=== PATIENT | male | born 1985 | race African-American/Black ===

== ENCOUNTER 2017-12-30 05:01 | Outpatient (CLI) | payer OTHER | END 2017-12-30 05:02 | disposition critical access hospital (66) | LOC: EMS 05:01 | PROVIDERS: ATTEND Surgery | DX: R55 Syncope and collapse (principal) | CPT/HCPCS: A0425; A0429 ==

== ENCOUNTER 2017-12-30 05:17 | Emergency (ER) | payer OTHER ==
--- NOTE | 2017-12-30 05:29 | ED Physician Documentation ---
PD HPI SYNCOPE - Stated complaint Stated Complaint: SYNCOPE - Chief complaint Chief Complaint: Neuro - History obtained from History obtained from: Patient, EMS - History of Present Illness Witnessed: Witnessed Timing - onset: Today Duration: Minutes (5) Preceding symptoms: Diaphoresis Injury occurred: Fell. No: Head injury, Bit tongue Similar symptoms before: Has not had sx before Recently seen: Not recently seen - Additional information Additional information: Patient is a 32 year old male with no significant past medical history who is presenting to the emergency department for a syncopal episode. According to patient and ems patient had just gone to the bathroom. Patient was walking back to bed when he became diaphoretic and syncopized. Patient's witnessed the event and stated that the patient hit his head on the door on his way down. She reports that he was out for a few minutes. Upon initial evaluation in the emergency department patient was awake, alert oriented and denied any complaints. Review of Systems Constitutional: denies: Fever, Chills Eyes: denies: Decreased vision Ears: denies: Ear pain, Drainage/discharge Nose: denies: Epistaxis Cardiac: denies: Chest pain / pressure, Palpitations Respiratory: denies: Cough, Wheezing GI: denies: Abdominal Pain, Nausea, Vomiting : reports: Reviewed and negative Skin: denies: Abrasion (s), Laceration (s) Musculoskeletal: denies: Neck pain Neurologic: reports: Syncope. denies: Headache, Head injury Immunocompromised: denies: Immunocompromised PD PAST MEDICAL HISTORY - Past Medical History Past Medical History: No - Past Surgical History Past Surgical History: Yes - Present Medications Home Medications: Ambulatory Orders Medication Instructions Recorded Confirmed Ondansetron Odt [Zofran] 4 mg TL Q6H PRN #14 tablet 12/30/17 - Allergies Allergies/Adverse Reactions: Allergies Allergy/AdvReac Type Severity Reaction Status Date / Time No Known Drug Allergies Allergy Verified 12/30/17 05:21 - Social History Does the pt smoke?: No Smoking Status: Never smoker Does the pt drink ETOH?: No Does the pt have substance abuse?: No - Immunizations Immunizations are current?: Yes PD ED PE NORMAL - Vitals Vital signs reviewed: Yes - General General: Alert and oriented X 3, No acute distress - HEENT HEENT: Atraumatic, PERRL, Moist mucous membranes - Neck Neck: Supple, no meningeal sign, No JVD - Cardiac Cardiac: RRR, No murmur - Respiratory Respiratory: No respiratory distress - Abdomen Abdomen: Soft, Non tender, Non distended - Derm Derm: Normal color, No rash - Extremities Extremities: No deformity, No edema, No calf tenderness / cord - Neuro Neuro: Alert and oriented X 3, supervisor records change 2-12 intact, No motor deficit, Normal speech Eye Opening: Spontaneous Motor: Obeys Commands Verbal: Oriented GCS Score: 15 Results - Vitals Vitals: Vital Signs - 24 hr 12/30/17 12/30/17 12/30/17 05:17 06:00 06:02 Temperature 37.3 C 38.2 C H Heart Rate 83 77 Respiratory 18 16 Rate Blood Pressure 121/75 112/88 H O2 Saturation 100 95 Oxygen O2 Source Room air - EKG (time done) 0521 Rate: Rate (enter#) (77) Rhythm: NSR [place]: Normal Intervals: Normal [place] Ischemia: ST elevation c/w repol Compare to prior EKG: Old EKG unavailable - Labs Labs: Laboratory Tests 12/30/17 12/30/17 12/30/17 05:40 05:40 05:40 WBC 5.7 RBC 6.00 Hgb 13.1 L Hct 42.0 MCV 69.9 L MCH 21.8 L MCHC 31.2 L RDW 13.7 Plt Count 213 MPV 8.2 Neut # 4.3 Lymph # 0.8 L Garfield # 0.5 Eos # 0.0 Baso # 0.0 Absolute Nucleated RBC 0.00 Nucleated RBC % 0.0 Sodium 135 Potassium 3.8 Chloride 102 Carbon Dioxide 27 Anion Gap 6.0 BUN 17 Creatinine 1.3 H Estimated GFR (MDRD) 78 L Glucose 117 H Calcium 8.6 Total Bilirubin 0.6 AST 21 ALT 18 Alkaline Phosphatase 71 Troponin I < 0.04 B-Natriuretic Peptide Total Protein 7.6 Albumin 4.0 Globulin 3.6 Albumin/Globulin Ratio 1.1 Lipase 15 L 12/30/17 05:40 WBC RBC Hgb Hct MCV MCH MCHC RDW Plt Count MPV Neut # Lymph # Garfield # Eos # Baso # Absolute Nucleated RBC Nucleated RBC % Sodium Potassium Chloride Carbon Dioxide Anion Gap BUN Creatinine Estimated GFR (MDRD) Glucose Calcium Total Bilirubin AST ALT Alkaline Phosphatase Troponin I B-Natriuretic Peptide 13 Total Protein Albumin Globulin Albumin/Globulin Ratio Lipase PD MEDICAL DECISION MAKING - ED course Complexity details: reviewed old records, reviewed results, re-evaluated patient , considered differential, d/w patient, d/w family ED course: Patient was seen and examined at bedside. ekg was performed and was normal sinus. labs were drawn and showed a small bump in creatinine. patient also became febrile while in the emergency department and was treated with ibuprofen. A line was started and a fluid bolus was started but patient did not like the way it felt so he asked for it to be removed. patient was given a liter of fluids PO which he tolerated without difficulty. Patient was negative on the granados trevor syncope rules. patient required no further work up and was stable for discharge with outpatient follow up. Departure - Departure Disposition: 01 Home, Self Care Clinical Impression: Syncope Condition: Good Instructions: ED Fainting Unkn Cause, ED Syncope Vasovagal Follow-Up: IRAM TURNER [Primary Care Provider] - Prescriptions: Ondansetron Odt [Zofran] 4 mg TL Q6H PRN #14 tablet PRN Reason: Nausea / Vomiting Comments: Your diagnostics today were within normal limits aside from very mild dehydration. You did develop a fever while you were here so this might be the start of a developing infection. Over the next few days you should be drinking at least 100oz of water or electrolyte solution. You should take motrin or tylenol as needed for fevers. You should follow up with your doctor if your symptoms return. You may return to the emergency department at any time for new , worsening or uncontrollable symptoms.
[2017-12-30 05:51] LABS: BASOPHILS % (AUTO) 0.7 %; EOSINOPHILS % (AUTO) 0.6 %; HGB - HEMOGLOBIN 13.1 g/dL (14.0-18.0); LYMPHOCYTES # (AUTO) 0.8 10^3/uL (1.5-3.5); LYMPHOCYTES % (AUTO) 14.9 %; MEAN CORPUSCULAR HEMOGLOBIN 21.8 pg (27.0-31.0); MEAN CORPUSCULAR HGB CONC 31.2 g/dL (32.0-36.0); MEAN CORPUSCULAR VOLUME 69.9 fL (80.0-94.0); MEAN PLATELET VOLUME 8.2 fL (7.4-11.4); MONOCYTES # (AUTO) 0.5 10^3/uL (0.0-1.0); MONOCYTES % (AUTO) 8.7 %; NEUTROPHILS # (AUTO) 4.3 10^3/uL (1.5-6.6); NEUTROPHILS % (AUTO) 75.1 %; PLT - PLATELET COUNT 213 10^3/uL (130-450); RED CELL DISTRIBUTION WIDTH 13.7 % (12.0-15.0); WHITE BLOOD COUNT 5.7 x10^3/uL (4.8-10.8)
[2017-12-30 06:02] LABS: ALBUMIN/GLOBULIN RATIO 1.1 (1.0-2.2); BILIRUBIN,TOTAL 0.6 mg/dL (0.2-1.0); CALCIUM 8.6 mg/dL (8.5-10.3); CREATININE 1.3 mg/dL (0.6-1.2); TOTAL PROTEIN 7.6 g/dL (6.7-8.2)
[2017-12-30] MEDS ORDERED: IBUPROFEN 600 MG TABLET PO STA (06:05)
[2017-12-30] MEDS ORDERED: SODIUM CHLORIDE 0.9% 1,000 ML IV ONE (06:11)
[2017-12-30 06:19] VITALS: BP 112/88
== END 2017-12-30 06:28 | disposition home or self-care (01) ==
LOC: EDUNIT# → ED 05:17
DX: R55 Syncope and collapse (principal); E86.0 Dehydration; R50.9 Fever, unspecified
CPT/HCPCS: 36415; 80053; 83690; 83880; 84484; 85025; 93005; 99283

== ENCOUNTER 2017-12-30 10:25 | Outpatient (CLI) | payer OTHER | END 2017-12-30 10:26 | disposition critical access hospital (66) | LOC: EMS 10:25 | PROVIDERS: ATTEND Surgery | DX: R55 Syncope and collapse (principal) | CPT/HCPCS: A0425; A0429 ==

== ENCOUNTER 2017-12-30 10:54 | Observation (INO) | payer OTHER ==
--- NOTE | 2017-12-30 11:11 | ED Physician Documentation ---
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 denies: Chills Ears: denies: Drainage/discharge Nose: denies: Epistaxis Cardiac: denies: Chest pain / pressure, Palpitations Respiratory: denies: Dyspnea, Cough Musculoskeletal: denies: Neck pain Neurologic: reports: Syncope, Head injury. denies: Generalized weakness, Headache Endocrine: denies: Easy bruising / bleeding Immunocompromised: denies: Immunocompromised PD PAST MEDICAL HISTORY - Past Surgical History Past Surgical History: Yes - Present Medications Home Medications: Ambulatory Orders Medication Instructions Recorded Confirmed Terbinafine [Lamisil] 250 mg PO DAILY 12/30/17 12/30/17 - Allergies Allergies/Adverse Reactions: Allergies Allergy/AdvReac Type Severity Reaction Status Date / Time No Known Drug Allergies Allergy Verified 12/30/17 11:03 - Social History Does the pt smoke?: No Smoking Status: Never smoker Does the pt drink ETOH?: No Does the pt have substance abuse?: No - Immunizations Immunizations are current?: Yes PD ED PE NORMAL - Vitals Vital signs reviewed: Yes - HEENT HEENT: Atraumatic, PERRL, EOMI - Neck Neck: No bony TTP - Cardiac Cardiac: RRR, No murmur - Respiratory Respiratory: No respiratory distress, Clear bilaterally - Abdomen Abdomen: Soft, Non tender - Back Back: No spinal TTP - Derm Derm: Normal color - Neuro Neuro: Alert and oriented X 3, route driver 2-12 intact, No motor deficit, No sensory deficit Eye Opening: Spontaneous Motor: Obeys Commands Verbal: Oriented GCS Score: 15 Results - Vitals Vitals: Vital Signs - 24 hr 12/30/17 12/30/17 12/30/17 10:54 11:11 12:32 Temperature 36.3 C L Heart Rate 55 L 50 L Respiratory 23 15 Rate Blood Pressure 119/70 112/66 Blood Pressure 119/79 [Left] Blood Pressure 105/64 [Right] O2 Saturation 100 100 Oxygen O2 Source Room air - EKG (time done) 1055 Rate: Rate (enter#) (51) Rhythm: NSR [place]: Normal Intervals: Normal [place] Ischemia: Normal ST segments Other comments: Other comments (no delta wave) - Tele (time rhythm occurred) 1225 Telemetry / rhythm strip: NSR - Labs Labs: Laboratory Tests 12/30/17 12/30/17 12/30/17 12:40 12:42 12:42 WBC 4.9 RBC 5.89 Hgb 13.2 L Hct 41.2 L MCV 69.9 L MCH 22.4 L MCHC 32.0 RDW 14.1 Plt Count 200 MPV 8.6 Neut # 3.7 Lymph # 0.6 L Harris # 0.6 Eos # 0.0 Baso # 0.0 Absolute Nucleated RBC 0.00 Nucleated RBC % 0.1 D-Dimer < 200.0 L Sodium 133 L Potassium 3.8 Chloride 100 L Carbon Dioxide 26 Anion Gap 7.0 BUN 14 Creatinine 1.3 H Estimated GFR (MDRD) 78 L Glucose 102 H Calcium 8.9 Troponin I TSH Free T4 Urine Opiates Screen Ur Oxycodone Screen Urine Methadone Screen Ur Propoxyphene Screen Ur Barbiturates Screen Ur Tricyclics Screen Ur Phencyclidine Scrn Ur Amphetamine Screen U Methamphetamines Scrn U Benzodiazepines Scrn Urine Cocaine Screen U Cannabinoids Screen 12/30/17 12/30/17 12/30/17 12:42 12:42 12:45 WBC RBC Hgb Hct MCV MCH MCHC RDW Plt Count MPV Neut # Lymph # Harris # Eos # Baso # Absolute Nucleated RBC Nucleated RBC % D-Dimer Sodium Potassium Chloride Carbon Dioxide Anion Gap BUN Creatinine Estimated GFR (MDRD) Glucose Calcium Troponin I < 0.04 TSH 1.09 Free T4 0.98 Urine Opiates Screen NEGATIVE Ur Oxycodone Screen NEGATIVE Urine Methadone Screen NEGATIVE Ur Propoxyphene Screen NEGATIVE Ur Barbiturates Screen NEGATIVE Ur Tricyclics Screen NEGATIVE Ur Phencyclidine Scrn NEGATIVE Ur Amphetamine Screen NEGATIVE U Methamphetamines Scrn NEGATIVE U Benzodiazepines Scrn NEGATIVE Urine Cocaine Screen NEGATIVE U Cannabinoids Screen NEGATIVE - Rads (name of study) CTH Radiology: See rad report (neg) echo Radiology: See rad report (sinus edy EF 65-70% no regional wall motion abn, no effuson, nl valves) PD MEDICAL DECISION MAKING - ED course ED course: pt with recurrent unprovoked syncope EKG and first hr tele in ER sinus edy after second episode, feel pt merits observation status for prolonged monitoring echo etc already had labs earlier today but ordered rpt for purpose of admission spoke to hospitalist at 1250 and she req CTH and tox screen as well Departure - Departure Disposition: ED Place in Observation Clinical Impression: Syncope Qualifiers: Syncope type: unspecified Qualified Code(s): R55 - Syncope and collapse Condition: Good Discharge Date/Time: 12/30/17 14:36
[2017-12-30 12:53] LABS: MUDS CUTOFF CONCENTRATIONS CUTOFF CONC BELOW:
[2017-12-30 13:00] LABS: BASOPHILS % (AUTO) 0.3 %; CALCIUM 8.9 mg/dL (8.5-10.3); CREATININE 1.3 mg/dL (0.6-1.2); EOSINOPHILS % (AUTO) 0.2 %; HGB - HEMOGLOBIN 13.2 g/dL (14.0-18.0); LYMPHOCYTES # (AUTO) 0.6 10^3/uL (1.5-3.5); MEAN CORPUSCULAR HEMOGLOBIN 22.4 pg (27.0-31.0); MEAN CORPUSCULAR VOLUME 69.9 fL (80.0-94.0); MEAN PLATELET VOLUME 8.6 fL (7.4-11.4); MONOCYTES # (AUTO) 0.6 10^3/uL (0.0-1.0); MONOCYTES % (AUTO) 12.9 %; NEUTROPHILS # (AUTO) 3.7 10^3/uL (1.5-6.6); NEUTROPHILS % (AUTO) 74.6 %; PLT - PLATELET COUNT 200 10^3/uL (130-450); RED BLOOD COUNT 5.89 10^6/uL (4.70-6.10); RED CELL DISTRIBUTION WIDTH 14.1 % (12.0-15.0); WHITE BLOOD COUNT 4.9 x10^3/uL (4.8-10.8)
[2017-12-30 13:06] LABS: AMPHETAMINE SCREEN,URINE NEGATIVE (NEGATIVE); BENZODIAZEPINES SCREEN, URINE NEGATIVE (NEGATIVE); COCAINE SCREEN URINE NEGATIVE (NEGATIVE); METHADONE SCREEN, URINE NEGATIVE (NEGATIVE); METHAMPHETAMINES SCREEN, URINE NEGATIVE (NEGATIVE); OPIATE SCREEN, URINE NEGATIVE (NEGATIVE); OXYCODONE SCREEN, URINE NEGATIVE (NEGATIVE); PROPOXYPHENE SCREEN, URINE NEGATIVE (NEGATIVE); TRICYCLIC ANTIDEPRESSANT,URINE NEGATIVE (NEGATIVE)
[2017-12-30] MEDS ORDERED: ACETAMINOPHEN 325 MG TABLET PO PRN (13:35)
[2017-12-30] MEDS ORDERED: SODIUM CHLORIDE FLUSH 0.9% 10 ML SYRINGE IVP PRN (13:35)
[2017-12-30] MEDS ORDERED: ONDANSETRON 4 MG/2 ML VIAL IVP PRN (13:35)
--- NOTE | 2017-12-30 13:41 | CT Report ---
EXAM: CT HEAD EXAM DATE: 12/30/2017 01:24 PM. CLINICAL HISTORY: Syncope fall HI. COMPARISON: None. TECHNIQUE: Multiaxial CT images were obtained from the foramen magnum to the vertex. Reformats: Coron al. IV contrast: None. In accordance with CT protocol optimization, one or more of the following dose reduction techniques w ere utilized for this exam: automated exposure control, adjustment of mA and/or KV based on patient s ize, or use of iterative reconstructive technique. FINDINGS: Parenchyma: No intraparenchymal hemorrhage. No evidence of mass, midline shift, or CT findings of inf arction. Krueger-white differentiation is distinct. Extraaxial Spaces: Normal for age. No subdural or epidural collections identified. Ventricles: Normal in size and position. Sinuses and Orbits: Imaged paranasal sinuses, orbits, and mastoids show no significant abnormality. Bones: No evidence of fracture or calvarial defect. Other: None. IMPRESSION: No acute intracranial abnormality. [facility] Referring Provider Line: [phone] SITE ID: [id number]
[2017-12-30] MEDS: SODIUM CHLORIDE 0.9% 1,000 ML IV SCH ×2 (15:05→23:29)
[2017-12-30 16:31] LABS: THYROID STIMULATING HORMONE 1.09 uIU/mL (0.34-5.60)
[2017-12-30 16:33] LABS: FREE T4 (FREE THYROXINE) 0.98 ng/dL (0.58-1.64)
--- NOTE | 2017-12-30 17:07 | HISTORY & PHYSICAL EXAMINATION ---
DATE OF SERVICE: 12/30/2017 Physician: Loreto Casey MD PRIMARY CARE PHYSICIAN: [facility]. CHIEF COMPLAINT: Syncope. HISTORY OF PRESENT ILLNESS: The patient is a pleasant 32-year-old male with no significant past medical history. He is physically fit. He is active duty in the [place]. He was seen in the ER on 12/30/2017 early in the morning for a syncopal episode, underwent negative workup, and subsequently was sent to the [facility] to further follow up. While he was at the [facility], he again had a witnessed syncopal episode; therefore, he was brought back to the ER. The patient and his were good historians. They described that the patient woke up in the morning around 5 a.m.; he got up and went to the bathroom , he urinated after which he felt dizzy and lightheaded. He came out of the bathroom and tried to go back to bed; however, he became nauseous and collapsed. He could not get up from the floor, and subsequently, per the 's report, he lost consciousness for several minutes. At that time, he was clammy, cold, and sweaty. After a few minutes, he slowly and gradually regained consciousness. Ambulance was called, and by the time they arrived, the patient was almost back to his normal mentation; however, he was found with low blood pressure and slower heart rate. His heart rate was in the 50s and blood pressure around 80. As mentioned above, he was brought to the ER and had a grossly negative workup, was monitored on telemetry for several hours without any significant event noted. Subsequently, at the [facility], he had a similar syncopal episode, was sitting in the waiting room when he again became nauseous, cold, sweaty, clammy, lightheaded, dizzy, and passed out. On further interview, patient reports no recent stressors or lifestyle changes. He denies chest pain, shortness of breath or cough. When I asked him about fever; however , he told me that during the past 7-8 hours, he had high fever around 102. He had no other symptoms; in particular denied focal neurologic abnormalities or symptoms. Denied dysuria, any respiratory symptoms. Denied abdominal pain as well. Patient is in the [place]. He does not use any drugs. He takes no outpatient medications; he only started to take an antifungal medication for onychomycosis about 2 weeks ago, he reported no side effects on this medication. In the past he never had syncopal episodes. He does not take any dietary supplements or any known prescription medications. He does not have seizure disorder. Denied suffering any head injury. PAST MEDICAL HISTORY: History of vasectomy and subsequently reversal. No other surgical or medical history. OUTPATIENT MEDICATIONS: Terbinafine, taking for onychomycosis. SOCIAL HISTORY: Patient does not smoke, does not drink, does not use drugs. FAMILY HISTORY: Positive for brain tumor in the mother. CODE STATUS: FULL CODE. DIAGNOSTIC STUDIES ER workup was reviewed per electronic medical record included sodium 133, potassium 3.8, creatinine 1.3, BUN 14. Troponin was negative. Liver function tests unremarkable. White blood cell count was normal. Hemoglobin was 13.2. D-dimer was negative. EKG showed normal sinus rhythm. CT scan of the brain showed no intracranial abnormality. PHYSICAL EXAMINATION VITAL SIGNS: Heart rate between 50 and 60, blood pressure 119/80, temperature 36.6, respiratory rate 18, oxygen saturation 100% on room air. GENERAL: In general the patient is a well-developed young male who is nontoxic appearing. NEURO: Alert, oriented, nonfocal. PSYCH: Cooperative. CVS: S1, S2 regular. No pathologic murmur. RESPIRATORY: Clear to auscultation bilaterally without wheezes or crackles. ABDOMEN: Soft, benign, nontender. Normal bowel tones. LYMPHATIC: No lymphedema. MUSCULOSKELETAL: Atraumatic. DERMATOLOGIC: Patient had dark skin, but I could not see jaundice, pallor; there was no rash. ASSESSMENT/ACTIVE ISSUES/DIAGNOSIS: The patient is a healthy 32-year-old male who became febrile a few hours prior to presentation and started to have syncopal episodes. The way he describes the syncope, it definitely sounds vasovagal/neurocardiogenic. So far his workup is negative. It is also possibility that he has a viral illness causing labyrinthitis, which could contribute to his syncopal episodes. So far acute coronary syndrome, pulmonary embolism, metabolic abnormality were ruled out. Notably, patient had negative troponin, unremarkable EKG, and negative D-dimer. PLAN AND ORDERS 1. Patient is getting admitted under observation status. He will be monitored on telemetry. We will complete syncope workup with an echocardiogram to screen for structural heart abnormality. Overall, I think likely there is a benign etiology, which is vasovagal syncope; however, that would obviously be a diagnosis of exclusion. Fever and a viral syndrome could contribute. 2. Additional tests ordered include influenza swab, thyroid function tests UA. 3. Further workup will depend on the clinical course. Time spent with the care of this patient was 50 minutes. TD: 12/30/2017 16:28 KATHRYN
[2017-12-30] MEDS: PANTOPRAZOLE 40 MG TABLET PO SCH (18:45)
[2017-12-30] MEDS: SODIUM CHLORIDE FLUSH 0.9% 10 ML SYRINGE IVP SCH (18:45)
[2017-12-31] MEDS: SODIUM CHLORIDE FLUSH 0.9% 10 ML SYRINGE IVP SCH ×2 (00:57→10:24)
[2017-12-31] MEDS: PANTOPRAZOLE 40 MG TABLET PO SCH (07:11)
[2017-12-31] MEDS ORDERED: POLYETHYLENE GLYCOL 3350 17 GM PACKET PO SCH (09:00)
[2017-12-31 10:24] LABS: BILIRUBIN,URINE NEGATIVE (NEGATIVE); GLUCOSE, URINE (UA) NEGATIVE (NEGATIVE); KETONES,URINE (UA) NEGATIVE (NEGATIVE); LEUKOCYTE ESTERASE, URINE NEGATIVE (NEGATIVE); NITRITE,URINE NEGATIVE (NEGATIVE); OCCULT BLOOD,URINE NEGATIVE (NEGATIVE); PROTEIN,URINE NEGATIVE (NEGATIVE); UROBILINOGEN,URINE 0.2 (NORMAL) E.U./dL (NORMAL)
[2017-12-31] MEDS: SODIUM CHLORIDE 0.9% 1,000 ML IV SCH (10:24)
[2017-12-31 10:26] LABS: CLARITY,URINE CLEAR (CLEAR)
[2017-12-31 11:59] VITALS: BP 123/76
--- NOTE | 2017-12-31 12:17 | Discharge Plan ---
Discharge Plan Disposition: 01 Home, Self Care Condition: Good Diet: Regular Activity Restrictions: Only return to work/full activity after seen and cleared per cardiology. Additional Instructions or Follow Up instructions: Follow up at the [place] clinic. 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 Might need further evaluation of true syncopal episodes by EP/electrophysiology or Holter event monitor. Will be deferred to cardiology. If cleared by cardiology we recommend neurology outpatient evaluation as well. No Smoking: If you smoke, Please STOP! Call for help. Follow-up with: IRAM TURNER [Primary Care Provider] -
--- NOTE | 2017-12-31 20:37 | DISCHARGE SUMMARY ---
Physician: Loreto Casey MD DATE OF ADMISSION: 12/30/2017 DATE OF DISCHARGE: 12/31/2017 PRIMARY CARE PROVIDER: Juan Mack, nurse practitioner at [facility]. DISCHARGE DIAGNOSES 1. Multiple syncopal episodes, true syncope witnessed at primary provider's office. 2. Multifactorial syncopal episodes, mostly vasovagal etiology, plus additional dehydration, viral illness, possible labyrinthitis could contribute. DIAGNOSTIC TESTS 1. Echocardiogram showed normal ejection fraction, no wall motion abnormality, normal chambers and no valvular heart disease. 2. Telemetry monitoring showed no abnormal events. LABORATORY: Data showed mild dehydration initially but overall no metabolic abnormality to cause syncopal episodes. Urinalysis was negative. White blood cell count was unremarkable. Troponin was negative. D-dimer was normal. Thyroid function tests were unremarkable. Toxicology screen was negative. EKG showed normal sinus rhythm. CT scan of the brain showed no abnormality. DISCHARGE RECOMMENDATIONS 1. Given the fact that patient had true syncopal episode which lasted for several minutes and he had repeated episodes during the past couple of days, he is recommended not to return to work until cleared by a lens grinder. In particular, we recommend cardiology followup and possibly an electrophysiology study or outpatient Holter/event monitoring. Subsequently, if Cardiology clears the patient, then we will recommend further neurology evaluation. 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 2. Return precautions were discussed. DISCHARGE CONDITION: Vital signs stable. Patient was alert, oriented, neurologically nonfocal. He was eating lunch and offered no new complaint. He felt better after IV hydration. He had no lymphedema. Cardiovascular exam showed S1, S2, regular rhythm with heart rate around 55. BRIEF PRESENTATION AND HOSPITAL COURSE: Patient is a 32-year-old male with no significant past medical history who presented to the [facility] after he suffered several syncopal episodes, which lasted for several minutes and were witnessed. The way he described the syncopal episodes was suspicious for vasovagal syncope. I refer the reader to the history and physical, which I dictated on admission. Briefly, the patient experienced nausea. He became sweaty, cold, clammy, lightheaded, dizzy, and then passed out. He regained consciousness gradually. An additional issue was that he had several hours' history of fever prior to the start of his syncopal episodes. Therefore, it was suspected that a viral syndrome possibly causing labyrinthitis could influence his presentation. Besides, he was found mildly dehydrated. His BUN was 14 and creatinine was 1.3 on admission. Notably, patient was found with heart rate on the bradycardic side, around 50. However, given active duty , it is not unexpected in a young 32-year-old male. In any case, his EKG showed normal sinus rhythm, and there were no abnormal events on telemetry. It was noted, however, that in the setting of syncopal episodes, patient had slower heart rates and his blood pressure dropped as well to the 80s. Overall, he underwent the usual syncope workup, and no abnormality was found that would explain syncopal episodes. Given the clinical course and the patient's symptoms, I suspect that he has vasovagal syncope. Considering, however, that the syncope occurred several times and started somewhat abruptly, I would think that the patient should be further evaluated to make sure that we are not missing cardiac arrhythmia. I also recommend electrophysiology study , as syncopal episodes could interfere with his work and duties. Overall, I suspect benign etiology such as vasovagal syncope, which got triggered by fever and dehydration. Patient had an overall uneventful 2-day hospital stay, and he was discharged in stable condition. He is recommended to follow up with his primary care provider with the above recommendations. Time spent with the discharge was more than 30 minutes. TD: 12/31/2017 20:36 KATHRYN
== END 2017-12-31 13:25 | disposition home or self-care (01) ==
LOC: EDBD → ED 10:54 → OBS 13:35
PROVIDERS: ADMIT Internal Medicine; ATTEND Internal Medicine
DX: R55 Syncope and collapse (principal); E86.0 Dehydration; B34.9 Viral infection, unspecified; Z79.899 Other long term (current) drug therapy
CPT/HCPCS: 36415; 70450; 80048; 80053; 80306; 81003; 83690; 83880; 84439; 84443; 84484; 85025; 85379; 93005; 93306; 96360; 96361; 99283; 99284; A9270; G0378; 81001; 87086

== ENCOUNTER 2019-02-15 11:25 | Outpatient (CLI) | payer OTHER | END 2019-02-15 11:26 | disposition home or self-care (01) | LOC: SC 11:25 | PROVIDERS: ATTEND Internal Medicine Pulmonary Disease | DX: R06.83 Snoring (principal); R06.81 Apnea, not elsewhere classified; G47.10 Hypersomnia, unspecified | CPT/HCPCS: 99203; 99212 ==

== ENCOUNTER 2019-03-19 20:30 | Outpatient (CLI) | payer OTHER | END 2019-03-19 20:31 | disposition home or self-care (01) | LOC: SC 20:30 | PROVIDERS: ATTEND Internal Medicine Pulmonary Disease | DX: R06.83 Snoring (principal) | CPT/HCPCS: 95810 ==

== ENCOUNTER 2019-04-12 13:16 | Outpatient (CLI) | payer OTHER ==
--- NOTE | 2019-04-12 14:15 | CONSULTATION NOTE ---
Information from patient questionnaire entered by Renetta Elizabeth. I have reviewed and concur with the information entered by Renetta Elizabeth. This document represents the service I personally performed and the decisions made by me, Bayron Han MD, [facility]. - History of Present Illness HPI: Mr. Anderson returned with his for follow up of the sleep study he had on 03/19/2019. The polysomnography showed that the patient had normal sleep efficiency. The sleep architecture was relatively normal as well considering the first-night effect. Respiratory monitoring showed no significant sleep disordered breathing (AHI = 0.1) or hypoxia (chiquita oxygen saturation of 93%). The patient slept adequately in supine position (supine AHI = 0.3; non-supine = 0.00). No audible snore. There was no significant periodic leg movement of sleep. Cardiac rhythm was normal sinus rhythm without significant arrhythmia. No abnormal behavior (parasomnia) observed during the night. The patient was informed of these findings. I explained to him that the sleep study was normal. His states that his snore is bothersome to her. Initial [place] Sleepiness Scale score: 17 Current [place] Sleepiness Scale score: 18 - Allergies/Medications Allergies and home medications reviewed: Yes - Review of Systems Review of systems same as previous: Yes - Impression 1. Primary Snore (ICD-10 R06.83), not observed during the sleep study. Treatment for snore includes oral appliance therapy and upper airway surgery. - Plan 1. See a dentist for an oral appliance. 2. Return to the sleep clnic on as needed basis.
== END 2019-04-12 13:17 | disposition home or self-care (01) ==
LOC: SC 13:16
PROVIDERS: ATTEND Internal Medicine Pulmonary Disease
DX: R06.83 Snoring (principal)
CPT/HCPCS: 99212

== ENCOUNTER 2019-06-24 14:43 | Outpatient (CLI) | payer OTHER ==
--- NOTE | 2019-06-25 12:55 | MRI Report ---
Reason: PAIN IN SHOULDER, PAIN IN KNEE Procedure Date: 06/24/2019 Accession Number: [id number] / [id number] Procedure: MRI - Knee RT W/O CPT Code: FULL RESULT: EXAM: RIGHT KNEE MRI WITHOUT CONTRAST EXAM DATE: 06/24/2019 03:44 PM. CLINICAL HISTORY: Right knee pain COMPARISON: None. TECHNIQUE: Multiplanar, multisequence T1-weighted and fluid-sensitive sequences of the knee without contrast. Other: None. FINDINGS: Bones: No fractures or subluxations. No marrow edema. No bone lesions. Articular Cartilage: Unremarkable. Medial Meniscus: The medial meniscus is intact. Lateral Meniscus: The lateral meniscus is intact. Cruciate Ligaments: The anterior and posterior cruciate ligaments are intact. Collateral Ligaments: The medial collateral and lateral collateral ligamentous structures are intact. Tendons: The quadriceps, patellar, semimembranosus, and popliteus tendons are unremarkable. Musculature: No edema or fatty atrophy. Other: No effusion. No popliteal cyst. No loose bodies. The medial and lateral retinacula are intact. The subcutaneous tissues and fat pads are unremarkable. IMPRESSION: No MRI abnormalities in the knee. RAD[facility]
--- NOTE | 2019-06-25 13:09 | MRI Report ---
Reason: PAIN IN SHOULDER, PAIN IN KNEE Procedure Date: 06/24/2019 Accession Number: [id number] / [id number] Procedure: MRI - Shoulder LT W/O CPT Code: FULL RESULT: EXAM: LEFT SHOULDER MRI WITHOUT CONTRAST EXAM DATE: 06/24/2019 03:57 PM. CLINICAL HISTORY: Pain and restricted range of motion. No history of trauma or surgery. COMPARISON: None. TECHNIQUE: Multiplanar, multisequence T1-weighted and fluid-sensitive sequences of the shoulder without contrast. Other: None. FINDINGS: Acromioclavicular Region: The acromion is type II. There is moderate acromioclavicular joint osteoarthritis with edema of the adjacent ends of the acromion and clavicle. Inferiorly projecting osteophytes narrow the subacromial space and efface the superior surface of supraspinatus. No subacromial/subdeltoid bursal fluid. Glenohumeral Region: No subluxation. No effusion or loose bodies. The articular cartilage is unremarkable. Bone Marrow: No fracture, marrow edema or bone lesions. Labrum: The labrum is unremarkable on this nonarthrographic study. Musculature/Rotator Cuff: There is minimal thickening and increased T2 signal in supraspinatus suggesting minimal tendinosis. Infraspinatus and subscapularis appear unremarkable. No edema or fatty atrophy. Biceps Tendon: The long head of the biceps tendon and biceps rayna are intact. Other: The subcutaneous tissues are unremarkable. IMPRESSION: 1. Moderate acromioclavicular joint osteoarthritis. 2. Minimal supraspinatus tendinosis. RADIA
== END 2019-06-24 14:44 | disposition home or self-care (01) ==
LOC: DI 14:43
PROVIDERS: ATTEND Family Medicine
DX: M25.561 Pain in right knee (principal); M19.012 Primary osteoarthritis, left shoulder; M67.912 Unspecified disorder of synovium and tendon, left shoulder

== ENCOUNTER 2024-02-04 18:50 | Emergency (ER) | payer OTHER ==
[2024-02-04 19:13] VITALS: O2SAT 100
[2024-02-04 20:17] LABS: B. PARAPERTUSSIS- RESP PCR PAN NOT DETECTED; B. PERTUSSIS- RESP PCR PANEL NOT DETECTED; C. PNEUMONIAE- RESP PCR PANEL NOT DETECTED; CORONAVIRUS 229E-RESP PCR NOT DETECTED; CORONAVIRUS HKU1-RESP PCR NOT DETECTED; CORONAVIRUS NL63-RESP PCR NOT DETECTED; CORONAVIRUS OC43-RESP PCR NOT DETECTED; HUMAN METAPNEUMOVIRUS NOT DETECTED; INFLUENZA A- RESP PCR PANEL NOT DETECTED; INFLUENZA B - RESP PCR PANEL NOT DETECTED; M. PNEUMONIAE- RESP PCR PANEL NOT DETECTED; PARAINFLUENZA VIRUS 1 NOT DETECTED; PARAINFLUENZA VIRUS 2 NOT DETECTED; PARAINFLUENZA VIRUS 3 NOT DETECTED; PARAINFLUENZA VIRUS 4 NOT DETECTED; RHINOVIRUS/ENTEROVIRUS NOT DETECTED; RSV- RESP PCR PANEL NOT DETECTED; SARS-CoV-2 -RESP PCR PANEL NOT DETECTED
[2024-02-04 21:42] VITALS: BP 139/85
[2024-02-04 21:44] LABS: RAPID STREP SCREEN Negative (Negative)
--- NOTE | 2024-02-06 13:15 | ED Physician Documentation ---
History of Present Illness - Stated complaint Stated Complaint: FEVER/CONGESTION - Chief complaint Chief Complaint: Fever - History obtained from History obtained from: Patient - Additonal information Additional information: c/o fever, chills/diaphoresis, generalized myalgias. He denies cristian sore throat but says "it does hurt when I swallow" (odynophagia). Denies cough, dyspnea, MYERS. He has mild bilateral sinus congestion and sensation of post nasal drip. Symptoms began 1-2 days ago. He is UTD on immunizations. Tmax at home was 102. Review of Systems Constitutional: reports: Fever, Chills, Myalgias, Fatigue, Sweats Respiratory: reports: Reviewed and negative GI: denies: Abdominal Pain, Nausea, Vomiting : denies: Dysuria, Frequency PD PAST MEDICAL HISTORY - Past Medical History Past Medical History: No - Past Surgical History Past Surgical History: Yes - Present Medications Home Medications: Ambulatory Orders Medication Instructions Recorded Confirmed No Known Home Medications 02/04/24 02/04/24 - Allergies Allergies/Adverse Reactions: Allergies Allergy/AdvReac Type Severity Reaction Status Date / Time No Known Drug Allergies Allergy Verified 02/04/24 19:05 - Social History Does the pt smoke?: No Smoking Status: Never smoker Does the pt drink ETOH?: Yes Does the pt have substance abuse?: No - Immunizations Immunizations are current?: Yes PD ED PE NORMAL - Vitals Vital signs reviewed: Yes - General General: Alert and oriented X 3, No acute distress, Well developed/nourished - HEENT HEENT: Ears normal, Moist mucous membranes - Neck Neck: Supple, no meningeal sign - Respiratory Respiratory: No respiratory distress, Clear bilaterally PD ED PE EXPANDED - HEENT HEENT: Pharyngeal erythema (mild posterior o/p erythema, more pronounced on left, with trace left-sided exudate) - Neck Neck: Adenopathy (few bilateral prominent submandibular nodes) Results - Vitals Vitals: Oxygen O2 Source Room air - Labs Labs: Microbiology 02/04/24 21:30 Group A Strep Throat Culture - Preliminary Throat Laboratory Tests 02/04/24 02/04/24 19:17 21:30 Nasal Adenovirus (PCR) NOT DETECTED Nasal B. parapertussis DNA (PCR) NOT DETECTED Nasal Coronavir 229E PCR NOT DETECTED Nasal Coronavir HKU1 PCR NOT DETECTED Nasal Coronavir NL63 PCR NOT DETECTED Nasal Coronavir OC43 PCR NOT DETECTED Nasal Enterovir/Rhinovir PCR NOT DETECTED Nasal Influenza B PCR NOT DETECTED Nasal Influenza A PCR NOT DETECTED Nasal Parainfluen 1 PCR NOT DETECTED Nasal Parainfluen 2 PCR NOT DETECTED Nasal Parainfluen 3 PCR NOT DETECTED Nasal Parainfluen 4 PCR NOT DETECTED Nasal RSV (PCR) NOT DETECTED Nasal B.pertussis DNA PCR NOT DETECTED Nasal C.pneumoniae (PCR) NOT DETECTED José Human Metapneumo PCR NOT DETECTED Nasal M.pneumoniae (PCR) NOT DETECTED Nasal SARS-CoV-2 (PCR) NOT DETECTED Group A Strep Rapid Negative PD Medical Decision Making - ED course Complexity details: considered differential, d/w patient ED course: Respiratory PCR panel is negative for viruses tested on this panel. Rapid strep is negative. He is in NAD and symptoms (and lack of findings to argue otherwise) are s/o viral URI. Results d/w patient, return precautions reviewed. Departure - Departure Disposition: 01 Home, Self Care Clinical Impression: Viral syndrome Condition: Good Instructions: ED Viral Syndrome Comments: You tested negative for a number of different viruses today including COVID, influenza, and several other viruses that are tested with the nasal swab. The throat swab is testing for strep; the result is pending at the time of discharge from the emergency department. As we discussed, you will be contacted at 7 AM in the morning if the results is positive (in which case an antibiotic will be electronically submitted to [facility] pharmacy in [place]). You will not receive a call if the result is negative (in which case you would not need an antibiotic). If your strep test results negative, I discussed, the most likely explanation remains a viral infection that would not need any specific treatment such as an antibiotic viral medication. Forms: Activity restrictions Discharge Date/Time: 02/04/24 21:39
== END 2024-02-04 21:39 | disposition home or self-care (01) ==
LOC: ED 18:50
DX: B34.9 Viral infection, unspecified (principal)
CPT/HCPCS: 87070; 87430; 87633; 99283

== ENCOUNTER 2024-03-01 13:30 | Outpatient (CLI) | payer OTHER ==
--- NOTE | 2024-03-03 07:12 | MRI Report ---
PROCEDURE: Shoulder LT WO INDICATIONS: SHOULDER PAIN TECHNIQUE: Noncontrast oblique coronal T2 fast spin echo with fat saturation, oblique sagittal T1 spin echo and T2 fast spin echo with fat saturation, axial T1 spin echo and T2 fast spin echo with fat saturation t hrough the shoulder. COMPARISON: MRI left shoulder, 06/24/2019. FINDINGS: Image quality: Excellent. Rotator cuff: There is low-grade partial-thickness tear of the distal supraspinatus tendon along the bursal surface. There is moderate tendinosis of the infraspinatus and subscapularis tendons. No rota tor cuff muscle atrophy on sagittal images. Bones and bursae: No bone marrow contusions or fractures. Moderate acromioclavicular and glenohumera l joint degeneration. The acromion demonstrates conventional anatomy, without an os acromiale. Small subcoracoid bursal fluid is present, suggesting mild bursitis. Capsule and soft tissues: There is degenerative labral fraying. The glenohumeral ligaments appear int act. There is moderate tendinosis of the long head of the biceps tendon which demonstrates normal loc ation and morphology. The rotator interval appears irregular. The coracohumeral ligament is thicken ed. IMPRESSION: 1. Low-grade partial-thickness tear of the supraspinatus tendon along the bursal surface. No tendon r etraction or supraspinous muscle atrophy. 2. Moderate infraspinatus and subscapularis tendinosis. 3. Moderate tendinosis of the long head of the biceps. 4. Moderate acromioclavicular and glenohumeral arthrosis. 5. Mild subcoracoid bursitis. 6. Irregular rotator interval and thickening of coracohumeral ligament. The findings are associated w ith adhesive capsulitis. Reviewed by: Hawk Archer MD on 03/03/2024 7:11 AM PDT Approved by: Hawk Archer MD on 03/03/2024 7:11 AM PDT Station ID: [id number]
--- NOTE | 2024-03-03 07:20 | MRI Report ---
PROCEDURE: Shoulder RT WO INDICATIONS: SHOULDER PAIN TECHNIQUE: Noncontrast oblique coronal T2 fast spin echo with fat saturation, oblique sagittal T1 spin echo and T2 fast spin echo with fat saturation, axial T1 spin echo and T2 fast spin echo with fat saturation t hrough the shoulder. COMPARISON: None. FINDINGS: Image quality: Excellent. Rotator cuff: There is intermediate grade partial-thickness tear of the supraspinatus tendon along th e bursal surface. There is mild infraspinatus and subscapular tendinosis. No rotator cuff muscle atro phy. Bones and bursae: No bone marrow contusions or fractures. Moderate acromioclavicular and glenohumera l joint degeneration. The acromion demonstrates conventional anatomy, without an os acromiale. There is trace subacromial-subdeltoid, likely related to bursal surface supraspinatus tendon tear. Mild bu rsitis may be present. Capsule and soft tissues: Mild degenerative labral fraying. The glenohumeral ligaments appear intact. The long head of the biceps tendon demonstrates normal location and morphology. The rotator interv al appears normal, without fibrosis. The coracohumeral ligament is normal in thickness. IMPRESSION: 1. Intermediate grade partial-thickness tear of the supraspinatus tendon. 2. Mild infraspinous and subscapularis tendinosis. 3. Tendinosis of the long head of the biceps 4. Moderate acromioclavicular and glenohumeral joint degeneration. Reviewed by: Hawk Archer MD on 03/03/2024 7:18 AM PDT Approved by: Hawk Archer MD on 03/03/2024 7:18 AM PDT Station ID: [id number]
== END 2024-03-01 13:31 | disposition home or self-care (01) ==
LOC: DI 13:30
PROVIDERS: ATTEND Nurse Practitioner Family
DX: M75.112 Incomplete rotator cuff tear or rupture of left shoulder, not specified as traumatic (principal); M67.814 Other specified disorders of tendon, left shoulder; M19.012 Primary osteoarthritis, left shoulder; M75.52 Bursitis of left shoulder; M75.111 Incomplete rotator cuff tear or rupture of right shoulder, not specified as traumatic; M67.813 Other specified disorders of tendon, right shoulder; M19.011 Primary osteoarthritis, right shoulder